=== PATIENT | female | born 1990 | race Caucasian/White ===

== ENCOUNTER 2017-08-04 07:51 | Emergency (ER) | payer BC ==
[2017-08-04 08:10] VITALS: BP 131/73
--- NOTE | 2017-08-04 08:28 | UC ---
Respiratory Complaint HPI - HPI Summary HPI Summary: Cough and congestion for about two weeks. No obvious chest pain. THEre has been right lateral chest pain on occassion. Cough is mainly dry. No recent fever but she has been warm. No chronic medical problems but she has had tachycardia on occassion during past medical care. Non smoker. No lung disease. - History of Current Complaint Chief Complaint: UCRespiratory Stated Complaint: COUGH CONGESTION SINUS Time Seen by Provider: 08/04/17 08:15 Hx Obtained From: Patient Hx Last Menstrual Period: 07/31/17 ?: No Onset/Duration: Gradual Onset, Lasting Weeks, Still Present Severity Initially: Moderate Severity Currently: Moderate Character: Cough: Nonproductive Aggravating Factors: Deep Breaths, Recumbent Position Alleviating Factors: Nothing Associated Signs And Symptoms: Positive: URI, Nasal Congestion, Sinus Discomfort. Negative: Dyspnea, Fever, Chills, Pleuritic Chest Pain, Wheezing, Hemoptysis, Dizziness, Calf Pain, Calf Swelling - Allergies/Home Medications Allergies/Adverse Reactions: Allergies Allergy/AdvReac Type Severity Reaction Status Date / Time No Known Allergies Allergy Verified 08/04/17 08:11 Home Medications: Home Medications Owihnjkggihan-Zagiratwxe-Utgfy [Nyquil Severe Cold/Flu 5-6.25-10-325 mg/15Ml] 2 tab PO BEDTIME 08/04/17 [History Confirmed 08/04/17] PMH/Surg Hx/FS Hx/Imm Hx Previously Healthy: No - tubal . - Surgical History Surgical History: Yes Surgery Procedure, Year, and Place: 10/2016, tubal ligation 12/2016 - Family History Known Family History: Positive: Other - denies [facility] of sinusitis - Social History Alcohol Use: None Substance Use Type: None Smoking Status (MU): Never Smoked Tobacco Review of Systems ENT: Sinus Congestion Respiratory: Cough Neurological: Headache All Other Systems Reviewed And Are Negative: Yes Physical Exam Triage Information Reviewed: Yes Appearance: Well-Appearing, No Pain Distress, Well-Nourished Vital Signs: Initial Vital Signs Temp 99.3 F 08/04/17 08:00 Pulse 122 08/04/17 08:00 Resp 20 08/04/17 08:00 BP 131/73 08/04/17 08:00 Pulse Ox 100 08/04/17 08:00 Vital Signs Reviewed: Yes Eye Exam: Normal Eyes: Positive: Conjunctiva Clear ENT: Positive: Normal ENT inspection, Pharynx normal, Nasal congestion, TMs normal, Uvula midline. Negative: Pharyngeal erythema, Nasal drainage, TM bulging, TM dull, TM red, Tonsillar swelling, Tonsillar exudate, Trismus, Sinus tenderness Neck: Positive: Supple, Nontender, No Lymphadenopathy Respiratory: Positive: Normal breath sounds, No respiratory distress, No accessory muscle use. Negative: Respiratory distress, Decreased breath sounds, Accessory muscle use, Crackles, Rhonchi, Stridor, Wheezing Cardiovascular: Positive: No Murmur, Pulses Normal, Brisk Capillary Refill, Tachycardia - 110 HR. regular. Abdomen Description: Positive: Nontender, No Organomegaly, Soft. Negative: Distended, Guarding Musculoskeletal Exam: Other - NO edema, tenderness of the calves. Neg homans marie. Musculoskeletal: Positive: ROM Intact, No Edema Neurological: Positive: Alert, Muscle Tone Normal. Negative: Fatigued Psychological: Positive: Age Appropriate Behavior Skin: Negative: rashes UC Diagnostic Evaluation - Laboratory O2 Sat by Pulse Oximetry: 100 - Radiology Xray Interpretation: No Acute Changes Radiology Interpretation Completed By: Radiologist Respiratory Course/Dx - Course Course Of Treatment: Tachycardia is concerning but she also has a low grade fever. She states that she has had tachycardia before with prior medical care but doesnot have a pcp. She agrees to start care with pPC and we will give her PCP referral number. NO signs of serious bacterial infection and she is quite non toxic appearing. No signs of pneumonia, PE, DVT. She will return for any worsening inthe meantime. - Differential Dx/Diagnosis Provider Diagnoses: tachycardia. uri Discharge - Discharge Plan Condition: Good Disposition: HOME Prescriptions: Azithromyxin BRYANNA (NF) [Z-Bryanna (Zithromax) 250 mg tabs #6] 2 tab PO .TODAY, THEN 1 DAILY #6 tab Patient Education Materials: Upper Respiratory Infection (ED) Referrals: No Primary Care Phys,NOPCP [Primary Care Provider] - Additional Instructions: REturn here for any worsening.
--- NOTE | 2017-08-04 08:50 | RAD ---
INDICATION: Tachycardia, fever and cough. COMPARISON: There are no prior studies available for comparison. TECHNIQUE: Dual-energy PA and lateral views of the chest were obtained. FINDINGS: The heart is within normal limits in size. Mediastinal and hilar contours appear within normal limits. The lungs are clear. No pleural effusion is present. IMPRESSION: NO EVIDENCE FOR ACTIVE CARDIOPULMONARY DISEASE.
== END 2017-08-04 09:14 | disposition home or self-care (01) ==
LOC: UCCORT 07:51
DX: J06.9 Acute upper respiratory infection, unspecified (principal); R00.0 Tachycardia, unspecified; Z32.02 Encounter for pregnancy test, result negative
CPT/HCPCS: 71046; 84702; 99212; G0463

== ENCOUNTER 2018-09-29 08:28 | Emergency (ER) | payer BC, MEDICAID ==
[2018-09-29 09:14] VITALS: BP 116/71
--- NOTE | 2018-09-29 09:49 | UC ---
Respiratory Complaint HPI - HPI Summary HPI Summary: Ms. Tejeda has had congestion and URI symptoms for a couple of weeks. She's been using Sudafed and some other medications but now has developed a frontal headache and full feeling. As well as soreness and swelling in the right anterior neck. - History of Current Complaint Chief Complaint: UCRespiratory Stated Complaint: RT SIDE NECK SWOLLEN,ST Time Seen by Provider: 09/29/18 09:36 Hx Obtained From: Patient Hx Last Menstrual Period: 09/22/18 ?: No - S/P Tubal Onset/Duration: Gradual Onset Timing: Constant Severity Initially: Mild Severity Currently: Moderate Pain Intensity: 5 Character: Cough: Nonproductive Associated Signs And Symptoms: Positive: URI, Nasal Congestion, Sinus Discomfort - Allergies/Home Medications Allergies/Adverse Reactions: Allergies Allergy/AdvReac Type Severity Reaction Status Date / Time No Known Allergies Allergy Verified 09/29/18 09:10 PMH/Surg Hx/FS Hx/Imm Hx Previously Healthy: Yes - Surgical History Surgical History: Yes Surgery Procedure, Year, and Place: 10/2016, tubal ligation 12/2016 - Family History Known Family History: Positive: Other - denies [facility] of sinusitis - Social History Alcohol Use: None Substance Use Type: None Smoking Status (MU): Never Smoked Tobacco Review of Systems All Other Systems Reviewed And Are Negative: Yes Constitutional: Positive: Negative Skin: Positive: Negative Eyes: Positive: Negative ENT: Positive: Sore Throat, Nasal Discharge, Sinus Congestion, Sinus Pain/ Tenderness Respiratory: Positive: Negative Cardiovascular: Positive: Negative Physical Exam - Summary Physical Exam Summary: She is nontoxic in appearance and her vital signs are stable. Triage Information Reviewed: Yes Appearance: Well-Appearing Vital Signs: Initial Vital Signs Temp 97.5 F 09/29/18 09:11 Pulse 80 09/29/18 09:11 Resp 16 09/29/18 09:11 BP 116/71 09/29/18 09:11 Pulse Ox 100 09/29/18 09:11 Vital Signs Reviewed: Yes ENT: Positive: Pharyngeal erythema, Nasal congestion, TMs normal, Sinus tenderness - poor transillumination of frontal sinuses Neck: Positive: Other: - mild right tender anterior cervicle lymphadenopathy Respiratory Exam: Normal Cardiovascular: Positive: RRR UC Diagnostic Evaluation - Laboratory O2 Sat by Pulse Oximetry: 100 Respiratory Course/Dx - Course Course Of Treatment: She has been treating her sinuses for about a week and I will treat her with antibiotics at this point. - Differential Dx/Diagnosis Provider Diagnosis: Sinusitis Discharge - Sign-Out/Discharge Documenting (check all that apply): Patient Departure All imaging exams completed and their final reports reviewed: No Studies - Discharge Plan Condition: Stable Disposition: HOME Patient Education Materials: Sinusitis (ED) Referrals: No Primary Care Phys,NOPCP [Primary Care Provider] - - Billing Disposition and Condition Condition: STABLE Disposition: Home
== END 2018-09-29 10:20 | disposition home or self-care (01) ==
LOC: UCCORT 08:28
DX: J32.9 Chronic sinusitis, unspecified (principal)
CPT/HCPCS: 87651; 99212; G0463

== ENCOUNTER 2019-02-08 11:32 | Emergency (ER) | payer MEDICAID ==
[2019-02-08 12:23] VITALS: BP 128/79
--- NOTE | 2019-02-08 12:42 | UC ---
UC General HPI - HPI Summary HPI Summary: 10 day hx worsening sinus congestion, post nasal drip with sore throat and cough. + subjective fever and purulent drainage. no cp or sob. pain in upper teeth and headache from the pressure. prior hx same from sinus infections. taking otc medications without relief. - History of Current Complaint Chief Complaint: UCGeneralIllness Stated Complaint: COUGH,CONGESTION,HEADACHE Time Seen by Provider: 02/08/19 12:37 Hx Obtained From: Patient Hx Last Menstrual Period: 09/22/18 Onset/Duration: Gradual Onset Timing: Constant Pain Intensity: 6 - Allergy/Home Medications Allergies/Adverse Reactions: Allergies Allergy/AdvReac Type Severity Reaction Status Date / Time No Known Allergies Allergy Verified 02/08/19 12:23 Home Medications: Home Medications Diphenhydra/Phenyleph/Acetamin [Theraflu Expressmax Cold Nt Lq] 245.5 ml PO DAILY PRN 02/08/19 [History Confirmed 02/08/19] PMH/Surg Hx/FS Hx/Imm Hx Previously Healthy: Yes - Surgical History Surgical History: Yes Surgery Procedure, Year, and Place: 10/2016, tubal ligation 12/2016 - Family History Known Family History: Positive: Other - denies [facility] of sinusitis - Social History Occupation: Employed Full-time Alcohol Use: None Substance Use Type: None Smoking Status (MU): Never Smoked Tobacco Review of Systems All Other Systems Reviewed And Are Negative: Yes Constitutional: Positive: Fever ENT: Positive: Sore Throat, Nasal Discharge, Sinus Congestion, Sinus Pain/ Tenderness Respiratory: Positive: Cough. Negative: Shortness Of Breath Cardiovascular: Negative: Palpitations, Chest Pain Neurological: Positive: Headache - from sinus pressure Physical Exam Triage Information Reviewed: Yes Appearance: Well-Appearing Vital Signs: Initial Vital Signs Temp 97.9 F 02/08/19 12:17 Pulse 90 02/08/19 12:17 Resp 20 02/08/19 12:17 BP 128/79 02/08/19 12:17 Pulse Ox 100 02/08/19 12:17 Vital Signs Reviewed: Yes Eyes: Positive: Conjunctiva Clear ENT: Positive: Pharynx normal, Nasal congestion, TMs normal, Sinus tenderness - R maxilla. Negative: Nasal drainage Dental: Negative: Abscess @ Neck: Positive: Supple, Nontender, No Lymphadenopathy Respiratory: Positive: Lungs clear, Normal breath sounds, No respiratory distress Cardiovascular: Positive: RRR, No Murmur Abdomen Description: Positive: Nontender Musculoskeletal: Positive: ROM Intact Neurological: Positive: Alert Psychological: Positive: Age Appropriate Behavior Skin Exam: Normal Course/Dx - Diagnoses Provider Diagnosis: Sinusitis Discharge - Sign-Out/Discharge Documenting (check all that apply): Patient Departure All imaging exams completed and their final reports reviewed: No Studies - Discharge Plan Condition: Stable Disposition: HOME Prescriptions: Amoxicillin/Clavulanate TAB* [Augmentin TAB 875*] 875 mg PO BID 10 Days #20 tab Patient Education Materials: Sinusitis (ED) Forms: *Work Release Referrals: Timur Sharif MD [Medical Doctor] - 7 Days - Billing Disposition and Condition Condition: STABLE Disposition: Home
== END 2019-02-08 12:49 | disposition home or self-care (01) ==
LOC: UCCORT 11:32
DX: J32.9 Chronic sinusitis, unspecified (principal)
CPT/HCPCS: 99212; G0463